=== PATIENT | female | born 1970 | race Caucasian/White ===

== ENCOUNTER → 2020-08-06 | Outpatient (CLI) | payer OTHER ==
--- NOTE | 2020-08-06 11:30 | P.STRESS ---
- Stress Test Note Stress Test Results/Findings: Exam Performed: NM stress cardiolite complete Exam Date: 08/06/20 Reason for Exam: CHEST PAIN/SYNCOPE Height: 5 ft 4 in Weight: 79.1 kg Protocol: CARDIOLITE NHUNG Stage: 3 Duration of Exercise: 9:08 MINUTES Resting Heart Rate: 66 Resting Blood Pressure: 142/98 Maximum Achieved Heart Rate: 148 Maximum Achieved Blood Pressure: 169/89 85% PMHR: 146 100% PMHR: 172 METS: 10.5 Technologist Comment: Stress Test Results/Findings: Heart rate 66 beats a minute, blood pressure 142/90 mmHg Twelve-lead EKG shows normal sinus rhythm with normal cardiac intervals normal ST segments isolated biphasic T waves in the lead 3 Patient exercised on a Nhung protocol for 9 minutes achieving a peak heart rate of 148 beats a minute. Peak blood pressure 169/89 mmHg No arrhythmias No ECG was ischemia At recovery ECG was normal Impression No ECG evidence for ischemia Patient exercised on a Nhung protocol for 9 minutes
--- NOTE | 2020-08-06 11:38 | NM ---
EXAMINATION TYPE: NM stress cardiolite complete DATE OF EXAM: 08/06/2020 COMPARISON: NONE HISTORY: Chest pain TECHNIQUE: After the intravenous administration of 9.5 mCi Tc 99m Sestamibi - Rest images obtained 4 5 minutes post injection. The patient exercised using a NHUNG protocol and 1 minute prior to peak e xercise was injected with 27.5 mCi Tc 99m Sestamibi - Stress images obtained 10 minutes post injectio n. FINDINGS: No stress-induced ischemic changes are evident. No mismatch defects are evident. No fixed defect to s uggest prior infarct is evident. Wall motion is normal. Ejection fraction of 75% is normal. Polar maps are unremarkable. IMPRESSION: No stress-induced ischemic change evident.
== END | disposition home or self-care (01) ==
LOC: RADNMMAIN 07:50
PROVIDERS: ATTEND Family Medicine
DX: R07.9 Chest pain, unspecified (principal)
CPT/HCPCS: 93017; 78452; A9500

== ENCOUNTER → 2021-05-26 | Outpatient (CLI) | payer OTHER ==
--- NOTE | 2021-05-26 16:28 | NM ---
EXAMINATION TYPE: NM hepatobiliary w EF DATE OF EXAM: 05/26/2021 COMPARISON: NONE HISTORY: Biliary dyskinesia TECHNIQUE: After the intravenous administration of 3.6 mCi Tc 99m Mebrofenin hepatobiliary scintigrap hy is performed. Immediate images post injection. FINDINGS: There is satisfactory initial accumulation of tracer by the liver. The gallbladder is visualized at 56 minutes minutes. The small bowel activity is noted within 4 minutes. At one hour 8 ounces of ora l ensure plus is given to mimic CCK and gallbladder ejection fraction is calculated at 13 %, below th e lower and of normal. IMPRESSION: Abnormal low gallbladder ejection fraction consistent with patient's history
== END | disposition home or self-care (01) ==
LOC: RADNMMAIN 12:32
PROVIDERS: ATTEND Family Medicine
DX: K82.8 Other specified diseases of gallbladder (principal)
CPT/HCPCS: 78226; A9537

== ENCOUNTER 2021-06-08 07:56 | Day surgery (SDC) | payer OTHER ==
[~2021-06-08 07:56] MED LIST: ACETAMINOPHEN TAB 500 MG TAB PO PRN; DEXAMETHASONE SOD PHOSPHATE 4 MG/ML 1 ML VIAL IV ONE; HEPARIN SODIUM,PORCINE/PF 5,000 UNIT/0.5 ML SYRINGE SQ PRN; HYDROmorphone 0.5 MG/0.5 ML SYRINGE IVP PRN; LACTATED RINGERS 1,000 ML IV SCH; LIDOCAINE 1% (10MG/ML) FOR IV START INTRADERMA PRN; ONDANSETRON 4 MG/2 ML VIAL IVP ONE; SCOPOLAMINE 1.5MG/72HR PATCH TRANSDERM ONE
[2021-06-08] MEDS ORDERED: ONDANSETRON 4 MG/2 ML VIAL ONE (08:36)
[2021-06-08] MEDS ORDERED: MIDAZOLAM 2 MG/2 ML VIAL IVP ONE (08:44)
--- NOTE | 2021-06-08 08:58 | P.GSHP ---
History of Present Illness H&P Date: 06/08/21 Chief Complaint: Right upper quadrant pain Is a 51-year-old female who right upper quadrant pain. Recent HIDA scan shows a diminished ejection fraction of 13% consistent with biliary dysfunction. Patient presents today for laparoscopic cholecystectomy Past Medical History Past Medical History: Hypertension, Thyroid Disorder Additional Past Medical History / Comment(s): had covid August 2020, frequent abd. pain, diarrhea History of Any Multi-Drug Resistant Organisms: None Reported Past Surgical History: Breast Surgery, Tonsillectomy, Tubal Ligation Additional Past Surgical History / Comment(s): breast bx., wisdom teeth removed Past Anesthesia/Blood Transfusion Reactions: Previous Problems w/ Anesthesia Additional Past Anesthesia/Blood Transfusion Reaction / Comment(s): hard time waking up after wisdom teeth removed but no other problems w/other surgeries Smoking Status: Never smoker - Past Family History Mother Family Medical History: No Reported History Medications and Allergies Home Medications Medication Instructions Recorded Confirmed Type Levothyroxine Sodium [Synthroid] 137 mcg PO DAILY 06/04/21 06/08/21 History Losartan Potassium [Cozaar] 50 mg PO DAILY 06/04/21 06/08/21 History Allergies Allergy/AdvReac Type Severity Reaction Status Date / Time Sulfa (Sulfonamide Allergy Rash/Hives Verified 06/08/21 08:08 Antibiotics) Surgical - Exam Vital Signs Temp Pulse Resp BP Pulse Ox 97.3 F L 79 18 191/92 100 06/08/21 08:13 06/08/21 08:13 06/08/21 08:13 06/08/21 08:13 06/08/21 08:13 - General well developed, well nourished, no distress - Eyes PERRL - ENT normal pinna - Neck no masses - Respiratory normal expansion - Cardiovascular Rhythm: regular - Abdomen Abdomen: soft, non tender Assessment and Plan Plan: Chronic cholecystitis. We'll perform laparoscopic cholecystectomy
[2021-06-08] MEDS ORDERED: LIDOCAINE 1% INJ 10MG/ML (20 ML MDV) ONE (09:17)
[2021-06-08] MEDS ORDERED: MIDAZOLAM 2 MG/2 ML VIAL ONE (09:17)
[2021-06-08] MEDS ORDERED: PROPOFOL 10 MG/ML 20 ML VIAL IV ONE (09:17)
[2021-06-08] MEDS ORDERED: DEXAMETHASONE SOD PHOSPHATE 10 MG/ML 1 ML VIAL ONE (09:17)
[2021-06-08] MEDS ORDERED: ROCURONIUM 10 MG/ML (5 ML VIAL) IV ONE (09:17)
[2021-06-08] MEDS ORDERED: GLYCOPYRROLATE 0.2 MG/ML 2 ML VIAL ONE (09:17)
[2021-06-08] MEDS ORDERED: NEOSTIGMINE 1 MG/ML 10 ML VIAL ONE (09:17)
[2021-06-08] MEDS ORDERED: KETOROLAC 15 MG/ML 1 ML VIAL ONE (09:17)
[2021-06-08] MEDS ORDERED: HYDROmorphone (PF) 1 MG/ML ONE (09:17)
[2021-06-08] MEDS ORDERED: fentaNYL (PF) 50 MCG/ML 2 ML AMP ONE (09:17)
[2021-06-08] MEDS ORDERED: SUCCINYLCHOLINE CHLORIDE 100 MG/5 ML SYR IV ONE (09:17)
[2021-06-08] MEDS ORDERED: BUPIVACAINE (PF) 0.25% 30 ML VIAL SQ ONE (09:55)
--- NOTE | 2021-06-08 10:20 | P.OP ---
Date of Procedure: 06/08/21 Preoperative Diagnosis: Cholecystitis Postoperative Diagnosis: Cholecystitis Procedure(s) Performed: Laparoscopic cholecystectomy Anesthesia: ARLEN Surgeon: Juan Webb Estimated Blood Loss (ml): 5 Pathology: other (Gallbladder) Condition: stable Disposition: PACU Description of Procedure: The patient was placed on the operating table. The patient received a general endotracheal tube anesthesia. The patients abdomen was prepped and draped in the usual sterile fashion. Through an infraumbilical stab incision, the fascia of the anterior abdominal wall was grasped with a pair of Kochers and then the Veress needle was placed in the peritoneal cavity. Position of the Veress needle was confirmed with positive drop test. The abdomen was then insufflated. After adequate insufflation, the 10 mm trocar was placed in the peritoneal cavity. Following this the laparoscope was placed in the peritoneal cavity. The patient was placed in the head-up, right side up position and then a 5 mm trocar was placed in the right lateral and right subcostal position under direct visualization. A 8 mm trocar was placed in the epigastric position. The gallbladder was grasped in the fundus and infundibulum. Traction on the gallbladder was placed in the lateral and the cephalad positions. The triangle of Calot was visualized.. The cystic duct was bluntly dissected until the union of the cystic duct and common bile duct was seen. A critical view of safety was achieved. The cystic duct was then divided and sealed with the Harmonic scissors. A PDS Endoloop was then placed throughout the cystic duct stump. The cystic artery divided and sealed with the Harmonic scissors. The gallbladder was then removed from the liver bed using Harmonic scissors. The gallbladder was then extracted through the epigastric port site. Operative field was checked for any bleeding spots and Harmonic scissors was used to coagulate the liver bed. The abdomen was irrigated. The trocars were removed. The skin was closed using interrupted 3-0 Vicryl suture. Dermabond dressing were applied. The patient tolerated the procedure well.
[2021-06-08 10:21] VITALS: TEMP 97
[2021-06-08 10:29] VITALS: RESP 16
[2021-06-08 14:24] VITALS: BP 122/65; PULSE 65
== END 2021-06-08 14:47 | disposition home or self-care (01) ==
LOC: OR 07:56
PROVIDERS: ATTEND Surgery
DX: K81.1 Chronic cholecystitis (principal); K82.8 Other specified diseases of gallbladder; I10 Essential (primary) hypertension; E07.9 Disorder of thyroid, unspecified; Z86.16 Personal history of COVID-19; Z98.890 Other specified postprocedural states; Z98.51 Tubal ligation status; Z79.899 Other long term (current) drug therapy; Z88.2 Allergy status to sulfonamides
CPT/HCPCS: 81025; 88304; 47562; J2250; J1100 ×2; J2710; J0690; J2405; J2001; J3010; J1170 ×2; J1885; J0330; J2704; J1790; J1644

== ENCOUNTER 2021-06-11 12:36 | Emergency (ER) | payer OTHER ==
[2021-06-11 12:58] VITALS: BP 182/100; PULSE 77; RESP 18; TEMP 98.8
[2021-06-11] MEDS ORDERED: SODIUM CHLORIDE 0.9% 1,000 ML IV STA (14:00)
[2021-06-11 14:52] LABS: Basophils % (A) 0 %; Eosinophils # (A) 0.1 k/uL (0-0.7); Eosinophils % (A) 1 %; HCT 36.2 % (34.0-46.0); HGB 11.4 gm/dL (11.4-16.0); Lymphocytes # (A) 1.8 k/uL (1.0-4.8); Lymphocytes % (A) 20 %; MCH 24.9 pg (25.0-35.0); MCHC 31.6 g/dL (31.0-37.0); MCV 78.7 fL (80.0-100.0); Mean Platelet Volume 8.3; Monocytes # (A) 0.4 k/uL (0-1.0); Monocytes % (A) 4 %; Neutrophils # (A) 6.8 k/uL (1.3-7.7); Neutrophils % (A) 74 %; Platelet Count 376 k/uL (150-450); RDW 13.8 % (11.5-15.5); WBC 9.2 k/uL (3.8-10.6)
[2021-06-11 15:00] LABS: ALT 21 U/L (4-34); AST 37 U/L (14-36); African American GFR (CKD) >90 (>60 ml/min/1.73 sqM); Albumin 4.6 g/dL (3.5-5.0); Alkaline Phosphatase 75 U/L (38-126); Anion Gap 9 mmol/L; Appearance,Urine Clear (Clear); Bilirubin,Urine Negative (Negative); Blood Urea Nitrogen 8 mg/dL (7-17); Blood,Urine Negative (Negative); Calcium 9.7 mg/dL (8.4-10.2); Carbon Dioxide 26 mmol/L (22-30); Chloride 102 mmol/L (98-107); Color,Urine Colorless; Glucose 95 mg/dL (74-99); Glucose,Urine (UA) Negative (Negative); Ketones,Urine Negative (Negative); Leukocyte Esterase,Urine Negative (Negative); Nitrite,Urine Negative (Negative); Non-African American GFR(CKD) >90 (>60 ml/min/1.73 sqM); Potassium 3.9 mmol/L (3.5-5.1); Protein,Urine Negative (Negative); Sodium 137 mmol/L (137-145); Specific Gravity,Urine 1.006 (1.001-1.035); Total Bilirubin 0.5 mg/dL (0.2-1.3); Total Protein 8.1 g/dL (6.3-8.2); Urobilinogen,Urine <2.0 mg/dL (<2.0)
--- NOTE | 2021-06-11 15:28 | CT ---
EXAMINATION TYPE: CT abdomen pelvis w con DATE OF EXAM: 06/11/2021 HISTORY: LUQ pain, swelling near incision point post franklin CT DLP: 1069.7mGycm Automated Exposure Control for Dose Reduction was Utilized. CONTRAST: CT scan of the abdomen and pelvis is performed without oral but with IV Contrast, patient injected wi th 100 mL of Isovue 300. COMPARISON: None. FINDINGS: LUNG BASES: There is a round 1.1 cm low dense lesion in the lateral inferior right breast. Probable t hin-walled cyst. Clinical correlation and correlation with prior mammogram/ultrasound advised. Diagno stic workup recommended if cannot be confirmed as benign cyst on prior studies. Slightly elevated lef t hemidiaphragm. LIVER/GB: Gallbladder is now surgically absent. No biliary dilatation. PANCREAS: No significant abnormality is seen. SPLEEN: No significant abnormality is seen. ADRENALS: No significant abnormality is seen. KIDNEYS: Symmetric cortical medullary uptake and excretion without hydronephrosis seen bilaterally. BOWEL: Somewhat low-lying cecum into the right pelvis. No suspicious small or large bowel dilatation. UTERUS/ADNEXA: Slightly retroflexed uterus. Small amount of free fluid in the pelvis of slightly incr eased density than typical greater than urine axial image 72 for reference. No adnexal masses. LYMPH NODES: No greater than 1cm abdominal or pelvic lymph nodes are appreciated. OSSEOUS STRUCTURES: Mild facet arthropathy lower lumbar spine. OTHER: Linear slightly thickened soft tissue anterior abdominal wall in the left midabdomen coronal i mage 17 for reference favors developing laparoscopic scar. Cannot exclude small 1 to 2 cm thin-walled hematoma at this level. Focal additional scar near level of umbilicus in the midline is present IMPRESSION: 1. No large subcutaneous thick walled fluid collection to suggest significant hematoma or drainable a bscess. 2. Attention to inferior lateral right breast. Follow-up advised. 3. Nonspecific small amount of simple fluid in the pelvis could reflect some blood product related to recent surgery. Otherwise No suspicious finding within the abdomen or pelvis.
--- NOTE | 2021-06-11 16:42 | ED ---
Abdominal Pain HPI - General Chief Complaint: Abdominal Pain Stated Complaint: Post op complications Source: patient Mode of arrival: wheelchair Limitations: no limitations - History of Present Illness Initial Comments: Patient is a 51-year-old female who presents to the emergency department with reported abdominal pain and swelling. Patient is recently postop from cholecystectomy on Tuesday by Dr. Webb. Surgery was performed laparoscopically. She has been taking Motrin, Tylenol and oxycodone post surgery with control of her pain. Today she states that she noted a lump to her left abdomen. She went in and saw her primary care physician who recommended that she come to the ER for evaluation. There is some ecchymosis over the site. Patient states she did not notice it immediately after surgery. She has had a decreased appetite. Denies having a bowel movement since before the procedure. Has been taking Colace twice daily. States that she passed 3 "small briana" this morning. No vomiting. Denies any fevers. No other alleviating, precipitating or modifying factors - Related Data Home Medications Medication Instructions Recorded Confirmed Levothyroxine Sodium [Synthroid] 137 mcg PO DAILY 06/04/21 06/08/21 Losartan Potassium [Cozaar] 50 mg PO DAILY 06/04/21 06/08/21 Previous Rx's Medication Instructions Recorded Acetaminophen Tab [Tylenol] 650 mg PO Q6H #30 tab 06/08/21 Docusate [Colace] 100 mg PO BID #20 capsule 06/08/21 Ibuprofen [Motrin] 600 mg PO Q6HR PRN #40 tab 06/08/21 oxyCODONE HCL [OxyIR] 5 mg PO Q6H PRN 3 Days #10 tab 06/08/21 Allergies Allergy/AdvReac Type Severity Reaction Status Date / Time Sulfa (Sulfonamide Allergy Rash/Hives Verified 06/11/21 12:57 Antibiotics) Review of Systems ROS Statement: Those systems with pertinent positive or pertinent negative responses have been documented in the HPI. ROS Other: All systems not noted in ROS Statement are negative. Past Medical History Past Medical History: Hypertension, Thyroid Disorder Additional Past Medical History / Comment(s): covid 08/28 History of Any Multi-Drug Resistant Organisms: None Reported Past Surgical History: Breast Surgery, Cholecystectomy, Tonsillectomy, Tubal Ligation Additional Past Surgical History / Comment(s): breast bx., wisdom teeth removed Past Anesthesia/Blood Transfusion Reactions: Previous Problems w/ Anesthesia Additional Past Anesthesia/Blood Transfusion Reaction / Comment(s): hard time waking up after wisdom teeth removed but no other problems w/other surgeries Past Psychological History: No Psychological Hx Reported Smoking Status: Never smoker Past Alcohol Use History: None Reported Past Drug Use History: None Reported - Past Family History Mother Family Medical History: No Reported History General Exam Limitations: no limitations Course Vital Signs 06/11/21 12:53 Temperature 98.8 F Pulse Rate 77 Respiratory 18 Rate Blood Pressure 182/100 O2 Sat by Pulse 99 Oximetry Medical Decision Making - Medical Decision Making Upon arrival patient was placed into room 24. Thorough history and physical exam is performed. IV is established. Patient was offered pain medications however refused. She was given a liter bolus of normal saline. Laboratory studies were conducted and reviewed. Laboratory studies are within normal limits. CT of the patient's abdomen and pelvis was performed which demonstrates a subcutaneous hematoma located over the left abdominal wall. Nonspecific small amounts of fluid in the pelvis. I did review the patient's record from her recent surgery which demonstrated that she did receive a heparin injection. I did discuss the diagnosis, differential treatment options. Patient hemodynamic was stable at this time. Will be discharged to follow-up with Dr. Webb at her appointment on the . Return to the emergency room for any new or worsening symptoms. She is instructed to take MiraLAX for her constipation. She was discharged home in stable condition - Lab Data Result diagrams: 06/11/21 14:47 06/11/21 14:47 Lab Results 06/11/21 06/11/21 06/11/21 Range/Units 14:47 14:47 14:47 WBC 9.2 (3.8-10.6) k/uL RBC 4.60 (3.80-5.40) m/uL Hgb 11.4 (11.4-16.0) gm/dL Hct 36.2 (34.0-46.0) % MCV 78.7 L (80.0-100.0) fL MCH 24.9 L (25.0-35.0) pg MCHC 31.6 (31.0-37.0) g/dL RDW 13.8 (11.5-15.5) % Plt Count 376 (150-450) k/uL MPV 8.3 Neutrophils % 74 % Lymphocytes % 20 % Monocytes % 4 % Eosinophils % 1 % Basophils % 0 % Neutrophils # 6.8 (1.3-7.7) k/uL Lymphocytes # 1.8 (1.0-4.8) k/uL Monocytes # 0.4 (0-1.0) k/uL Eosinophils # 0.1 (0-0.7) k/uL Basophils # 0.0 (0-0.2) k/uL Sodium 137 (137-145) mmol/L Potassium 3.9 (3.5-5.1) mmol/L Chloride 102 (98-107) mmol/L Carbon Dioxide 26 (22-30) mmol/L Anion Gap 9 mmol/L BUN 8 (7-17) mg/dL Creatinine 0.60 (0.52-1.04) mg/dL Est GFR (CKD-EPI)AfAm >90 (>60 ml/min/1.73 sqM) Est GFR (CKD-EPI)NonAf >90 (>60 ml/min/1.73 sqM) Glucose 95 (74-99) mg/dL Calcium 9.7 (8.4-10.2) mg/dL Total Bilirubin 0.5 (0.2-1.3) mg/dL AST 37 H (14-36) U/L ALT 21 (4-34) U/L Alkaline Phosphatase 75 (38-126) U/L Total Protein 8.1 (6.3-8.2) g/dL Albumin 4.6 (3.5-5.0) g/dL Urine Color Colorless Urine Appearance Clear (Clear) Urine pH 7.0 (5.0-8.0) Ur Specific [place] 1.006 (1.001-1.035) Urine Protein Negative (Negative) Urine Glucose (UA) Negative (Negative) Urine Ketones Negative (Negative) Urine Blood Negative (Negative) Urine Nitrite Negative (Negative) Urine Bilirubin Negative (Negative) Urine Urobilinogen <2.0 (<2.0) mg/dL Ur Leukocyte Esterase Negative (Negative) Disposition Clinical Impression: Subcutaneous hematoma Disposition: HOME SELF-CARE Condition: Stable Instructions (If sedation given, give patient instructions): Hematoma (ED) Additional Instructions: Please follow up with Dr. Webb at your scheduled appointment. Return to the ED for a new or worsening symptoms Is patient prescribed a controlled substance at d/c from ED?: No Referrals: Alf Berry MD [Primary Care Provider] - 1-2 days Juan Webb MD [STAFF PHYSICIAN] - 1-2 days Time of Disposition: 16:42
== END 2021-06-11 17:54 | disposition home or self-care (01) ==
LOC: EC 12:36
DX: L76.32 Postprocedural hematoma of skin and subcutaneous tissue following other procedure (principal); I10 Essential (primary) hypertension; Z79.890 Hormone replacement therapy; Z79.899 Other long term (current) drug therapy; Z90.49 Acquired absence of other specified parts of digestive tract
CPT/HCPCS: 36415; 80053; 85025; 81003; 74177; 99284; 96360; Q9967

== ENCOUNTER → 2024-02-27 | Outpatient (CLI) | payer OTHER ==
--- NOTE | 2024-02-28 09:12 | MR ---
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 TECHNIQUE: Multi planar, multi sequence imaging was performed through the brain including: T1, T2, In version recovery, Diffusion weighted imaging, and gradient echo imaging. No gadolinium was given. FINDINGS: The bruce-white junctions, ventricular system, basal cisterns appear unremarkable. Scattered foci of high T2 signal intensity are seen within the periventricular white matter. Midline structures show n o abnormality. Diffusion-weighted imaging shows no evidence of restricted diffusion. The susceptibili ty weighted images do not reveal any evidence for micro-hemorrhage. The bone marrow signal is within normal limits. Paranasal sinuses and mastoid air cells: No significant paranasal sinus disease. Visualized orbits: Orbital contents are intact. IMPRESSION: No evidence of intracranial mass or acute/subacute infarct.
== END | disposition home or self-care (01) ==
LOC: RADMRIMAIN 16:10
PROVIDERS: ATTEND Family Medicine
DX: G43.009 Migraine without aura, not intractable, without status migrainosus (principal); H53.9 Unspecified visual disturbance
CPT/HCPCS: 70551

== ENCOUNTER → 2024-05-28 | Day surgery (SDC) | payer OTHER ==
[2024-05-23 15:32] VITALS: BMI 32.5
[~2024-05-28] MED LIST changes: -ACETAMINOPHEN TAB 500 MG TAB PO PRN; -DEXAMETHASONE SOD PHOSPHATE 4 MG/ML 1 ML VIAL IV ONE; +GLUCAGON 1 MG/ML VIAL ONE; -HEPARIN SODIUM,PORCINE/PF 5,000 UNIT/0.5 ML SYRINGE SQ PRN; -HYDROmorphone 0.5 MG/0.5 ML SYRINGE IVP PRN; -LACTATED RINGERS 1,000 ML IV SCH; -LIDOCAINE 1% (10MG/ML) FOR IV START INTRADERMA PRN; -ONDANSETRON 4 MG/2 ML VIAL IVP ONE; +PROPOFOL 10 MG/ML 20 ML VIAL IV ONE; -SCOPOLAMINE 1.5MG/72HR PATCH TRANSDERM ONE
[2024-05-28 13:10] VITALS: TEMP 97.1
[2024-05-28] MEDS: IV FLUID CONTINUATION 1,000 ML IV ONE (13:10)
[2024-05-28] MEDS: LACTATED RINGERS 1,000 ML IV SCH (13:10)
[2024-05-28] MEDS: LIDOCAINE 1% (10MG/ML) FOR IV START INTRADERMA PRN (13:10)
[2024-05-28 13:22] LABS: Glucose,Whole Blood 95 mg/dL (70-110)
--- NOTE | 2024-05-28 14:09 | P.GSHP ---
History of Present Illness H&P Date: 05/28/24 Chief Complaint: Screening colonoscopy This is a 54-year-old female who presents today for screening colonoscopy. Patient denies any significant GI complaints. Past Medical History Past Medical History: Hypertension, Thyroid Disorder Additional Past Medical History / Comment(s): covid 08/28 History of Any Multi-Drug Resistant Organisms: None Reported Past Surgical History: Breast Surgery, Cholecystectomy, Hysterectomy, Tonsillectomy, Tubal Ligation Additional Past Surgical History / Comment(s): breast bx., wisdom teeth removed, Past Anesthesia/Blood Transfusion Reactions: Previous Problems w/ Anesthesia Additional Past Anesthesia/Blood Transfusion Reaction / Comment(s): HAD SOME BREATHING ISSUES DOMING OUT OF ANESTHESIA IN 07/14/22 Smoking Status: Never smoker - Past Family History Mother Family Medical History: No Reported History Medications and Allergies Home Medications Medication Instructions Recorded Confirmed Type Ascorbic Acid [Vitamin C] 500 mg PO DAILY 05/23/24 05/23/24 History Ergocalciferol [Vitamin D2 (1250 1,250 mcg PO WE 05/23/24 05/23/24 History Mcg = [id number] Iu)] Escitalopram [Lexapro] 10 mg PO DAILY 05/23/24 05/23/24 History L.acidoph,Paracasei, B.lactis 1 each PO DAILY 05/23/24 05/23/24 History [Probiotic] Levothyroxine Sodium [Synthroid] 150 mcg PO DAILY 05/23/24 05/23/24 History Liothyronine Sodium [Cytomel] 5 mcg PO DAILY 05/23/24 05/23/24 History Neuroflam 1 tab PO DAILY 05/23/24 History Telmisartan/Hydrochlorothiazid 1 each PO DAILY 05/23/24 05/23/24 History [Telmisartan-Hctz 80-12.5 mg Tb] Zinc Citrate [Zinc] 11 mg PO DAILY 05/23/24 05/23/24 History Allergies Allergy/AdvReac Type Severity Reaction Status Date / Time Sulfa (Sulfonamide Allergy Rash/Hives Verified 05/23/24 15:18 Antibiotics) Surgical - Exam Vital Signs Temp Pulse Resp BP Pulse Ox 97.1 F L 72 16 137/79 99 05/28/24 13:06 05/28/24 13:06 05/28/24 13:06 05/28/24 13:06 05/28/24 13:06
--- NOTE | 2024-05-28 14:23 | P.OP ---
Date of Procedure: 05/28/24 Preoperative Diagnosis: Screening colonoscopy Postoperative Diagnosis: Normal colon Procedure(s) Performed: Colonoscopy Anesthesia: MAC Surgeon: Juan Webb Pathology: none sent Condition: stable Disposition: PACU Description of Procedure: Patient was placed on the endoscopy table lateral position. She received IV sedation. Digital rectal exams performed. This revealed no abnormality. The flexible colonoscope was then placed patient anus. The ileocecal valve was not visualized secondary to stool in the cecum. The visualized right colon appeared normal. The transverse colon appeared normal. Descending colon was normal. The sigmoid colon appeared normal. Scope was withdrawn into the rectum and this was normal. Scope withdrawn for the patient.
[2024-05-28 14:42] VITALS: BP 140/85; PULSE 70; RESP 14
== END | disposition home or self-care (01) ==
LOC: ORWHC2ENDO 12:04
PROVIDERS: ATTEND Surgery